=== PATIENT | male | born 1985 | race Caucasian/White ===

== ENCOUNTER 2018-12-26 17:38 | Inpatient (IN) | payer OTHER ==
[~2018-12-26] VITALS: Ht 167.6 cm; Wt 74.3 kg
[2018-12-26] MEDS ORDERED: ETOMIDATE (2MG/ML) 20ML VIAL IV ONE ×3 (17:45→18:15)
[2018-12-26] MEDS ORDERED: SUCCINYLCHOLINE CHLORIDE 20 MG/ML 10ML VIAL IV ONE ×3 (17:45→18:15)
[2018-12-26] MEDS ORDERED: MIDAZOLAM DRIP 50 mg/50mL 50 ML IV ONE (17:47)
[2018-12-26 17:50] VITALS: BP 145/107
[2018-12-26] MEDS ORDERED: SODIUM CHLORIDE 0.9% 1,000 ML IVB ONE (18:05)
[2018-12-26] MEDS ORDERED: SODIUM CHLORIDE 0.9% 1,000 ML IV ONE (18:15)
[2018-12-26 18:25] LABS: Basophils # (auto) 0 uL; Basophils % (auto) 0.3 % (0.0-2.0); Eosinophils # (auto) 0.2 uL; Eosinophils % (auto) 1.4 % (0.0-7.0); Hematocrit 46.8 % (41.0-53.0); Hemoglobin 15.9 g/dL (13.5-17.5); Lymphocytes # (auto) 2.3 uL; Lymphocytes % (auto) 17.2 % (10.0-50.0); Mean Corpuscular Volume 91.4 fL (80.0-100.0); Monocytes # (auto) 1.1 uL; Monocytes % (auto) 8.3 % (0.0-12.0); Neutrophils # (auto) 9.7 uL; Neutrophils % (auto) 72.8 % (37.0-80.0); Nucleated Red Blood Cells % 0.1 %; Platelet Count (auto) 307 10^3/uL (140-450); Red Blood Cells 5.12 10^6/uL (4.5-5.90); Red Cell Distribution Width 14.2 % (11.8-14.3); White Blood Cell 13.3 10^3/uL (4.4-10.8)
[2018-12-26] MEDS: MIDAZOLAM DRIP 50 mg/50mL 50 ML IV SCH ×2 (18:28→23:45)
[2018-12-26 18:31] LABS: Alanine Aminotransferase 39 U/L (16-61); Albumin 4.1 g/dL (3.4-5.0); Anion Gap 10 (5-15); Aspartate Aminotransferase 65 U/L (15-37); BUN/Creatinine Ratio 6.8; Blood Urea Nitrogen 7 mg/dL (7-18); Calcium 8.7 mg/dL (8.5-10.1); Carbon Dioxide 23 mmol/L (21-32); Chloride 107 mmol/L (98-107); GFR African American 108 mL/min; GFR Non-African American 90 mL/min; Glucose 122 mg/dL (74-106); Magnesium 2.5 mg/dL (1.6-2.6); Potassium 3.5 mmol/L (3.5-5.1); Sodium 140 mmol/L (136-145)
[2018-12-26 18:34] LABS: Alkaline Phosphatase 59 U/L (45-117); Bilirubin, Total < 0.1 mg/dL (0.2-1.0); Lactic Acid w/Reflex 2.2 mmol/L (0.4-2.0); Total Protein 7.7 g/dL (6.4-8.2)
[2018-12-26 18:36] LABS: INR 0.98 (0.9-1.15); Partial Thromboplastin Time 23.6 sec (23.64-32.05)
[2018-12-26 18:41] LABS: Urine Bacteria FEW /hpf (None Seen); Urine Blood Negative /uL (Negative); Urine Hyaline Cast MOD /lpf (0 - 2); Urine Mucus FEW (None Seen); Urine WBC 1 /hpf (0 - 3)
[2018-12-26 18:53] LABS: Barbiturate Scree,Urine NEGATIVE (NEGATIVE); Cannabinoid Screen, Urine POSITIVE (NEGATIVE)
[2018-12-26 19:02] LABS: Amphetamine Screen, Urine POSITIVE (NEGATIVE); Benzodiazephine Screen, Urine NEGATIVE (NEGATIVE); Cocaine Screen, Urine NEGATIVE (NEGATIVE); Opiate Scree,Urine NEGATIVE (NEGATIVE); Phencyclidine Screen, Urine NEGATIVE (NEGATIVE)
[2018-12-26] MEDS ORDERED: fentaNYL Drip 2500mCg/250mlNS 250 ML IV SCH (19:03)
[2018-12-26] MEDS ORDERED: NITROGLYCERIN 0.4 MG SL TAB SL PRN (19:15)
[2018-12-26] MEDS ORDERED: IPRATROPIUM BROM 0.5 MG/2.5ML INH SOL NEB SCH ×2 (19:15→20:00)
[2018-12-26] MEDS ORDERED: ACETAMINOPHEN 500 MG TAB PO PRN (19:15)
[2018-12-26] MEDS ORDERED: ONDANSETRON HCL 4 MG/2 ML VIAL IV PRN (19:15)
[2018-12-26] MEDS ORDERED: ALBUTEROL SULF 2.5 MG/0.5ML(0.5%) NEB SOLN NEB SCH ×2 (19:15→20:00)
[2018-12-26] MEDS ORDERED: MORPHINE SULF INJ 2 MG/ML SYRINGE 1ML IV PRN (19:15)
--- NOTE | 2018-12-26 19:15 | NUR ---
Respiratory note: ABG RESULTS REPORTED AT BEDSIDE TO DAR BURTON AND DR. MEREDITH SERRANO. NEW VENT SETTINGS: AC 18/500/+5 60%, ABG TO FOLLOW IN 2 HOURS. RN AWARE OF NEW VENT SETTINGS. WILL CONTINUE TO MONITOR.
[2018-12-26 19:31] VITALS: BP 140/115
[2018-12-26 20:18] VITALS: BP 126/87
[2018-12-26] MEDS: SODIUM CHLORIDE 0.9% 1,000 ML IV SCH (20:36)
[2018-12-26 21:31] VITALS: BP 132/87
[2018-12-26] MEDS: ALBUTEROL SULF 2.5 MG/0.5ML(0.5%) NEB SOLN NEB SCH (21:39)
[2018-12-26] MEDS: IPRATROPIUM BROM 0.5 MG/2.5ML INH SOL NEB SCH (21:39)
[2018-12-26] MEDS: CLINDAMYCIN 300MG IV 50 ML IV SCH (22:00)
[2018-12-26] MEDS: FAMOTIDINE (10MG/ML) 2ML VL IV SCH (23:00)
[2018-12-26] MEDS ORDERED: ACETAMINOPHEN 650 MG RECT SUPP PR ONE (23:15)
--- NOTE | 2018-12-26 23:45 | NUR ---
Respiratory note: CHANGE IN PATIENT STATUS NOTED. PT TRANSFERRED TO NEW BED AND BECAME AWAKE AND ALERT, ABLE TO FOLLOW COMMANDS AND VERBAL ORDERS. PT ABLE TO PERFORM MIP -26. VITAL SIGNS STABLE, HR 124, SPO2 99% ON 30%, RR 20, VT 325. VERBAL ORDER GIVEN BY DR. BARNETT TO EXTUBATE PT. PT PLACED ON 12L 50% COOL AEROSOL MASK, NO STRIDOR NOTED UPON AUSCULTATION. BS CLEAR/COARSE, PT COUGHING UP MODERATE THICK BROWN SECRETIONS. STRONG PRODUCTIVE COUGH NOTED. PT VITAL SIGNS STABLE. HR 131, SPO2 99%, RR 24. RN, DR. BARNETT AND PT FAMILY AT BEDSIDE. RADIOLOGY PAGED FOR CHEST XRAY. PT ON CONTINUOS BEDSIDE MONITORING, WILL CONTINUE TO MONITOR ORDERED.
[2018-12-27] MEDS ORDERED: SODIUM CHLORIDE 0.9% 2,000 ML IV ONE (00:30)
[2018-12-27] MEDS ORDERED: LORazepam 2MG/ML-1ML VIAL IV ONE (00:30)
[2018-12-27] MEDS: ALBUTEROL SULF 2.5 MG/0.5ML(0.5%) NEB SOLN NEB SCH ×6 (02:23→22:32)
[2018-12-27] MEDS: IPRATROPIUM BROM 0.5 MG/2.5ML INH SOL NEB SCH ×6 (02:23→22:32)
[2018-12-27] MEDS: SODIUM CHLORIDE 0.9% 1,000 ML IV SCH ×2 (03:11→15:44)
[2018-12-27 04:58] LABS: Basophils # (auto) 0.1 uL; Basophils % (auto) 0.6 % (0.0-2.0); Eosinophils # (auto) 0 uL; Eosinophils % (auto) 0.2 % (0.0-7.0); Hematocrit 39.7 % (41.0-53.0); Hemoglobin 13.9 g/dL (13.5-17.5); Lymphocytes # (auto) 0.5 uL; Lymphocytes % (auto) 5.3 % (10.0-50.0); Mean Corpuscular Hemoglobin 31.3 pg (28.0-32.0); Mean Corpuscular Volume 89.5 fL (80.0-100.0); Monocytes # (auto) 0.8 uL; Monocytes % (auto) 8.6 % (0.0-12.0); Neutrophils # (auto) 8.2 uL; Neutrophils % (auto) 85.3 % (37.0-80.0); Platelet Count (auto) 220 10^3/uL (140-450); Red Blood Cells 4.44 10^6/uL (4.5-5.90); Red Cell Distribution Width 13.9 % (11.8-14.3); White Blood Cell 9.6 10^3/uL (4.4-10.8)
[2018-12-27 05:21] LABS: Anion Gap 8 (5-15); BUN/Creatinine Ratio 9.2; Blood Urea Nitrogen 8 mg/dL (7-18); Calcium 7.5 mg/dL (8.5-10.1); Carbon Dioxide 22 mmol/L (21-32); Chloride 110 mmol/L (98-107); GFR African American 132 mL/min; GFR Non-African American 109 mL/min; Glucose 76 mg/dL (74-106); Potassium 3.9 mmol/L (3.5-5.1); Sodium 140 mmol/L (136-145)
[2018-12-27] MEDS: CLINDAMYCIN 300MG IV 50 ML IV SCH ×3 (06:09→22:11)
[2018-12-27] MEDS ORDERED: cefTRIAXone 1GM/50ML D5W 50 ML IV SCH (09:00)
[2018-12-27] MEDS: cefTRIAXone 1GM/50ML D5W 50 ML IV SCH (11:02)
[2018-12-27] MEDS: FAMOTIDINE (10MG/ML) 2ML VL IV SCH ×2 (11:02→22:11)
--- NOTE | 2018-12-27 14:30 | NUR ---
MS admit from [facility] admitted to tele/MS after SBAR received. Patient oriented to CURT ROBINRN primary RN, unit, room, bed, and unit policies regarding patient care and visiting hours.Family at bedside. Patient weighed by bed scale and encouraged to call if they need something. All questions and concerns addressed, patient verbalized understanding.
[2018-12-27 14:40] VITALS: BP 109/54
--- NOTE | 2018-12-27 17:03 | NUR ---
PATIENT CALLED RN TO ROOM STATED RIGHT HAND AND ARM STARTED SWELLING. ASSESSED PATIENT RIGHT HAND AND ARM, RIGHT HAND WAS LARGER THEN LEFT, REDNESS NOTED ON KNUCKLES, AND LOWER ARM.PAIN 3/10. PULSE 2+ BILATERALLY. NO S/S OF DISTRESS. V/S 111/61 79 HR 98% ON RA 18 RR 98.6F. WILL PAGE HOSPITALIST AND CONTINUE TO MONITOR.
--- NOTE | 2018-12-27 17:05 | NUR ---
PAGED ON CALLED HOSPITALIST. AWAITING CALL BACK.
--- NOTE | 2018-12-27 17:48 | NUR ---
PAGED BUSINESS AND SERVICES INSTRUCTOR HOSPITALIST. AWAITING CALL BACK.
--- NOTE | 2018-12-27 17:49 | NUR ---
RECEIVED CALL BACK. SPOKE WITH MICHEAL DODGE. NEW ORDERS RECEIVED AWAITING CALL BACK. Addendum: 12/27/18 at 1819 by CURT ROBIN RN RN RECEIVED CALL BACK. SPOKE WITH MICHEAL DODGE. NEW ORDERS RECEIVED SEE EMR FOR ORDERS.
--- NOTE | 2018-12-27 18:27 | NUR ---
NOTIFIED MICHEAL DODGE OF RESULTS OF ULTRASOUND. NEW ORDERS RECEIVED SEE EMR FOR ORDERS.
[2018-12-27] MEDS ORDERED: IOHEXOL 350 MG/ML 100ML IJ ONE (18:51)
--- NOTE | 2018-12-27 19:30 | NUR ---
Opening Shift Note Assumed care of patient. Patient awake and alert. No S/S of distress/SOB or pain. Instructed on POC and to call for assist PRN, will continue to monitor for changes. Bed locked in lowest position and bed rails up x2. Call light within reach.
[2018-12-27] MEDS: ENOXAPARIN SOD 80 MG/0.8ML SYRINGE SC SCH ×2 (19:50→22:12)
[2018-12-27 21:20] VITALS: BP 106/64
--- NOTE | 2018-12-27 22:00 | NUR ---
Patient right arm restricted. programs assistant and patient made aware that the right arm is restricted from any activity, right arm restriction sign placed above bed
--- NOTE | 2018-12-27 22:40 | NUR ---
Patient taken down to radiology for CT angio
--- NOTE | 2018-12-28 01:00 | NUR ---
Patient states that he is aware of his ultrasound results of his right arm. At this time the swelling of the extremity is increasing and water control station engineer, made aware. Educated patient to keep his arm elevated on pillows and heat pack applied to hand for comfort
[2018-12-28] MEDS: SODIUM CHLORIDE 0.9% 1,000 ML IV SCH ×3 (01:15→21:08)
[2018-12-28] MEDS: IPRATROPIUM BROM 0.5 MG/2.5ML INH SOL NEB SCH ×6 (02:26→22:29)
[2018-12-28] MEDS: ALBUTEROL SULF 2.5 MG/0.5ML(0.5%) NEB SOLN NEB SCH ×6 (02:26→22:29)
[2018-12-28 05:17] VITALS: BP 105/55
[2018-12-28] MEDS: CLINDAMYCIN 300MG IV 50 ML IV SCH ×3 (05:48→21:44)
[2018-12-28 06:10] LABS: Basophils # (auto) 0 uL; Basophils % (auto) 0.5 % (0.0-2.0); Eosinophils # (auto) 0.2 uL; Hematocrit 37.3 % (41.0-53.0); Hemoglobin 13.1 g/dL (13.5-17.5); Lymphocytes # (auto) 1.5 uL; Lymphocytes % (auto) 16.6 % (10.0-50.0); Mean Corpuscular Hemoglobin 31.1 pg (28.0-32.0); Mean Corpuscular Hgb Conc. 35.1 g/dL (32.0-36.0); Mean Corpuscular Volume 88.5 fL (80.0-100.0); Monocytes # (auto) 0.6 uL; Neutrophils # (auto) 6.8 uL; Neutrophils % (auto) 73.9 % (37.0-80.0); Nucleated Red Blood Cells % 0.1 %; Platelet Count (auto) 195 10^3/uL (140-450); Red Blood Cells 4.21 10^6/uL (4.5-5.90); Red Cell Distribution Width 13.6 % (11.8-14.3); White Blood Cell 9.1 10^3/uL (4.4-10.8)
[2018-12-28 06:22] LABS: Albumin 2.9 g/dL (3.4-5.0); Calcium 7.9 mg/dL (8.5-10.1); Potassium 3.5 mmol/L (3.5-5.1)
[2018-12-28 06:27] LABS: Bilirubin, Total 0.8 mg/dL (0.2-1.0); Total Protein 5.7 g/dL (6.4-8.2)
[2018-12-28 09:32] VITALS: BP 120/63
[2018-12-28] MEDS: cefTRIAXone 1GM/50ML D5W 50 ML IV SCH (10:45)
[2018-12-28] MEDS: ENOXAPARIN SOD 80 MG/0.8ML SYRINGE SC SCH ×2 (10:46→21:44)
[2018-12-28] MEDS: FAMOTIDINE (10MG/ML) 2ML VL IV SCH ×2 (10:46→21:44)
--- NOTE | 2018-12-28 11:10 | NUR ---
DR. SERRANO IN TO SEE PT. PT IN AGREEMENT WITH PLAN OF CARE.
--- NOTE | 2018-12-28 11:30 | NUR ---
NEW IV INITIATED TO LFA#20. FLUSHING WELL. PT TOLERATED PROCEDURE WELL. IV TO LAC#18 DC'D DUE TO LEAKING.
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
[2018-12-28 13:46] VITALS: BP 110/64
--- NOTE | 2018-12-28 15:13 | NUR ---
PT TAKEN TO MRI VIA WHEELCHAIR. NO DISTRESS, EFFORTLESS BREATHING ON ROOM AIR.
--- NOTE | 2018-12-28 16:00 | NUR ---
PT BACK TO UNIT FROM MRI, NO DISTRESS NOTED. CALL LIGHT WITHIN REACH.
[2018-12-28 17:48] VITALS: BP 113/63
[2018-12-28] MEDS: MIDAZOLAM DRIP 50 mg/50mL 50 ML IV SCH (18:04)
--- NOTE | 2018-12-28 19:35 | NUR ---
OPENING SHIFT NOTE Assumed care of patient who is alert and oriented. Family is at bed side. Currently on room air with no s/s of distress or SOB noted. Denies pain at this time. Patient encouraged to continue ambulating as tolerated. POC discussed with patient who verbalizes understanding. Bed is in low locked position with side rails up x2. Call light is within reach and patient encouraged to call for assistance when needed. Will continue to monitor for changes PRN.
[2018-12-28 22:00] VITALS: BP 118/67
[2018-12-29] MEDS: ALBUTEROL SULF 2.5 MG/0.5ML(0.5%) NEB SOLN NEB SCH ×3 (02:06→10:07)
[2018-12-29] MEDS: IPRATROPIUM BROM 0.5 MG/2.5ML INH SOL NEB SCH ×3 (02:06→10:08)
[2018-12-29 05:38] VITALS: BP 122/71
[2018-12-29] MEDS: CLINDAMYCIN 300MG IV 50 ML IV SCH (06:00)
[2018-12-29] MEDS: SODIUM CHLORIDE 0.9% 1,000 ML IV SCH (06:26)
--- NOTE | 2018-12-29 08:02 | NUR ---
OPENING SHIFT NOTE Assumed care of patient who is alert and oriented. Currently on room air with no s/s of SOB or distress. Denies any pain or discomfort at this time. POC discussed with patient who verbalizes understanding. Patient encouraged to continue to ambulate as tolerated to maintain skin integrity and strength. Bed is in low locked position with side rails up x2. Will continue to monitor for changes PRN. Call light within reach.
[2018-12-29 08:23] VITALS: BP 113/71
[2018-12-29] MEDS: cefTRIAXone 1GM/50ML D5W 50 ML IV SCH (09:48)
[2018-12-29] MEDS: FAMOTIDINE (10MG/ML) 2ML VL IV SCH (09:48)
[2018-12-29] MEDS: ENOXAPARIN SOD 80 MG/0.8ML SYRINGE SC SCH (09:48)
--- NOTE | 2018-12-29 09:50 | NUR ---
ELECTROENCEPHALOGRAM COMPLETED AT BEDSIDE. MAYA ROJAS NOTIFIED.
--- NOTE | 2018-12-29 11:01 | NUR ---
MD Piedra rounded on pt informed pt he is clear for discharge and to not drive untill he follow up with MD garza, also informed pt on importance of no ETOH abuse or illicit drug use, pt verbalized understanding stated "i dont think shahid drink for awhile"
[2018-12-29 11:37] VITALS: BP 113/71
[2018-12-29 12:00] VITALS: BP 116/67
--- NOTE | 2018-12-29 13:15 | NUR ---
pt left ambulatory accompanied by father and brother, no c/o pain or discomfort no respiratory distress noted, pt refused mrsa screen stating "i just want to go home"
--- NOTE | 2018-12-29 16:34 | NUR ---
Assessment Pt is a 33 yr old alert and oriented male. Prior to admit, pt drank too much alcohol and his mom found him passed out in a bunch of vomit. Pt stated that he has done that one other time and that he has realized that he does not want to do that ever again. SW asked if he has a history of alcohol abuse, pt declined. SW asked if he has been dealing with anything hard lately that was a factor in drinking extra. Pt declined. SW asked pt if he would be interested in any community resources, such as . Pt stated that he is not in need of it at this time. Pt stated that he was embarrassed by what happened and that is a good enough reason to not drink too much again. Pts manner was friendly and was not defensive or combative. Pt states that his parents and brother live w/ him at home. Pts Mom, Heidy, is his emergency contact at [phone]. Pt is ambulatory, is independent with ADLs, cooking and cleaning. Pt stated that he does not have a Primary Dr. but that Samantha Syed is helping him find one. Pt received the paperwork for and Advanced directive. Pt stated that he would have a family member take him home. No needs or concerns at this time
== END 2018-12-29 13:13 | disposition home or self-care (01) | DRG 208 ==
LOC: ER 17:38 → EDBD 17:38 → TELE 17:39 → TELE-WESTW 12-27 14:31 → WEST WING 12-27 14:36
PROVIDERS: ADMIT Nurse Practitioner Acute Care; ATTEND Family Medicine
PROC: 5A1935Z Respiratory Ventilation, Less than 24 Consecutive Hours (ICD-10-PCS; principal; 2018-12-26)
PROC: 0BH17EZ Insertion of Endotracheal Airway into Trachea, Via Natural or Artificial Opening (ICD-10-PCS; 2018-12-26)
DX: J96.00 Acute respiratory failure, unspecified whether with hypoxia or hypercapnia (principal); J69.0 Pneumonitis due to inhalation of food and vomit; G92 Toxic encephalopathy; R55 Syncope and collapse; R56.9 Unspecified convulsions; F12.90 Cannabis use, unspecified, uncomplicated; F90.9 Attention-deficit hyperactivity disorder, unspecified type; R00.1 Bradycardia, unspecified; M79.89 Other specified soft tissue disorders
CPT/HCPCS: 31500; 36415; 36600; 70450; 70551; 71045; 71275; 73130; 80048; 80053; 80307; 80320; 81001; 82550; 82805; 83605; 83735; 84484; 85025; 85610; 85730; 87040; 87070; 87205; 93005; 93971; 94002; 94640; 94761; 95819; 96361; 96365; 99291; G0378; J0330; J0696; J2250; J3490

== ENCOUNTER → 2019-01-11 | Outpatient (CLI) | payer OTHER ==
[2019-01-11 13:27] LABS: Basophils # (auto) 0.1 uL; Eosinophils # (auto) 0.1 uL; Eosinophils % (auto) 0.7 % (0.0-7.0); Hematocrit 48.7 % (41.0-53.0); Hemoglobin 16.6 g/dL (13.5-17.5); Lymphocytes # (auto) 1.8 uL; Lymphocytes % (auto) 25.6 % (10.0-50.0); Mean Corpuscular Hemoglobin 30.2 pg (28.0-32.0); Mean Corpuscular Hgb Conc. 34.1 g/dL (32.0-36.0); Mean Corpuscular Volume 88.7 fL (80.0-100.0); Monocytes # (auto) 0.5 uL; Monocytes % (auto) 6.7 % (0.0-12.0); Neutrophils # (auto) 4.8 uL; Nucleated Red Blood Cells % 0.1 %; Platelet Count (auto) 380 10^3/uL (140-450); Red Cell Distribution Width 13.6 % (11.8-14.3); White Blood Cell 7.2 10^3/uL (4.4-10.8)
[2019-01-11 13:50] LABS: Cholesterol 216 mg/dL (< 200); Triglycerides 82 mg/dL (< 150)
[2019-01-11 13:52] LABS: Creatine Kinase IFCC 92 U/L (39-308); HDL Cholesterol 71 mg/dL (40-59); LDL Cholesterol 132 mg/dL (< 100)
== END | disposition home or self-care (01) ==
LOC: LAB 12:46
PROVIDERS: ATTEND Internal Medicine
DX: D64.9 Anemia, unspecified (principal); F90.9 Attention-deficit hyperactivity disorder, unspecified type; F41.9 Anxiety disorder, unspecified
CPT/HCPCS: 36415; 80061; 82306; 82550; 83036; 85025

== ENCOUNTER 2019-03-31 02:07 | Emergency (ER) | payer OTHER ==
[~2019-03-31] VITALS: Ht 167.6 cm; Wt 68.0 kg
[2019-03-31 02:52] VITALS: BP 113/68
== END 2019-03-31 03:04 | disposition home or self-care (01) ==
LOC: ER 02:09
DX: J06.9 Acute upper respiratory infection, unspecified (principal)

== ENCOUNTER → 2019-05-07 | Emergency (ER) | payer OTHER | END | disposition left against medical advice (07) | LOC: ER 22:07 | DX: R51 Headache (principal); Z53.21 Procedure and treatment not carried out due to patient leaving prior to being seen by health care provider ==

== ENCOUNTER 2019-05-08 11:27 | Emergency (ER) | payer OTHER ==
[~2019-05-08] VITALS: Ht 175.3 cm; Wt 81.6 kg
[2019-05-08] MEDS ORDERED: SODIUM CHLORIDE 0.9% 1,000 ML IVB ONE (12:11)
[2019-05-08 13:20] LABS: Basophils # (auto) 0.1 uL; Basophils % (auto) 0.5 % (0.0-2.0); Eosinophils # (auto) 0 uL; Hemoglobin 13.4 g/dL (13.5-17.5); Lymphocytes # (auto) 0.8 uL; Lymphocytes % (auto) 8.1 % (10.0-50.0); Mean Corpuscular Hemoglobin 29.4 pg (28.0-32.0); Mean Corpuscular Hgb Conc. 34.4 g/dL (32.0-36.0); Mean Corpuscular Volume 85.6 fL (80.0-100.0); Monocytes % (auto) 10.9 % (0.0-12.0); Neutrophils # (auto) 7.7 uL; Neutrophils % (auto) 80.5 % (37.0-80.0); Nucleated Red Blood Cells % 0.1 %; Platelet Count (auto) 292 10^3/uL (140-450); Red Blood Cells 4.56 10^6/uL (4.5-5.90); Red Cell Distribution Width 13.6 % (11.8-14.3); White Blood Cell 9.5 10^3/uL (4.4-10.8)
[2019-05-08 13:38] LABS: Acetaminophen < 2.0 ug/mL (10-30); Albumin 3.7 g/dL (3.4-5.0); Anion Gap 7 (5-15); Blood Alcohol < 3.0 mg/dL (0-5); Blood Urea Nitrogen 8 mg/dL (7-18); Calcium 8.4 mg/dL (8.5-10.1); Carbon Dioxide 25 mmol/L (21-32); Chloride 104 mmol/L (98-107); Glucose 109 mg/dL (74-106); Potassium 4.1 mmol/L (3.5-5.1); Salicylate < 1.7 mg/dL (2.8-20.0); Sodium 136 mmol/L (136-145)
[2019-05-08 13:44] LABS: Alanine Aminotransferase 21 U/L (16-61); Alkaline Phosphatase 48 U/L (45-117); Aspartate Aminotransferase 23 U/L (15-37); BUN/Creatinine Ratio 8.4; Bilirubin, Total 0.5 mg/dL (0.2-1.0); GFR African American 119 mL/min; GFR Non-African American 98 mL/min; Total Protein 7.1 g/dL (6.4-8.2)
[2019-05-08 15:13] LABS: Urine Bacteria NONE SEEN /hpf (None Seen); Urine Blood Negative /uL (Negative); Urine Hyaline Cast FEW /lpf (0 - 2); Urine Mucus FEW (None Seen); Urine Specific Gravity 1.018 (1.001-1.035); Urine WBC 3 /hpf (0 - 3)
[2019-05-08 15:24] LABS: Alcohol, Urine < 3.0 mg/dL (0-5); Amphetamine Screen, Urine NEGATIVE (NEGATIVE); Barbiturate Scree,Urine NEGATIVE (NEGATIVE); Benzodiazephine Screen, Urine NEGATIVE (NEGATIVE); Cannabinoid Screen, Urine NEGATIVE (NEGATIVE); Cocaine Screen, Urine NEGATIVE (NEGATIVE); Opiate Scree,Urine NEGATIVE (NEGATIVE); Phencyclidine Screen, Urine NEGATIVE (NEGATIVE)
[2019-05-08 17:13] VITALS: BP 110/74
== END 2019-05-08 17:16 | disposition home or self-care (01) ==
LOC: EDBD 11:27 → ER 11:27
DX: G40.909 Epilepsy, unspecified, not intractable, without status epilepticus (principal); F12.20 Cannabis dependence, uncomplicated; F17.210 Nicotine dependence, cigarettes, uncomplicated
CPT/HCPCS: 36415; 70450; 71046; 80053; 80307; 80320; 80329; 81001; 83735; 84484; 85025; 93005; 96360; 99284; J7030

== ENCOUNTER → 2021-02-21 | Outpatient (CLI) | payer OTHER ==
[2021-02-21 10:23] LABS: BUN/Creatinine Ratio 8.9; Potassium 4.3 mmol/L (3.5-5.1)
== END | disposition home or self-care (01) ==
LOC: LAB 09:09
PROVIDERS: ATTEND Internal Medicine
DX: E78.5 Hyperlipidemia, unspecified (principal)
CPT/HCPCS: 36415; 80048

== ENCOUNTER 2021-04-29 21:37 | Emergency (ER) | payer OTHER ==
[~2021-04-29] VITALS: Ht 167.6 cm; Wt 70.3 kg
[2021-04-30 03:35] VITALS: BP 118/66
== END 2021-04-30 03:36 | disposition home or self-care (01) ==
LOC: ER 21:39
DX: S93.402A Sprain of unspecified ligament of left ankle, initial encounter (principal); F17.210 Nicotine dependence, cigarettes, uncomplicated; X50.1XXA Overexertion from prolonged static or awkward postures, initial encounter; Y93.89 Activity, other specified; Y92.89 Other specified places as the place of occurrence of the external cause; Y99.8 Other external cause status
CPT/HCPCS: 73610

== ENCOUNTER → 2021-08-17 | Outpatient (CLI) | payer OTHER ==
[2021-08-17 10:33] LABS: Cholesterol 238 mg/dL (< 200); Triglycerides 49 mg/dL (< 150)
[2021-08-17 10:35] LABS: HDL Cholesterol 73 mg/dL (40-59); LDL Cholesterol 155 mg/dL (< 100)
== END | disposition home or self-care (01) ==
LOC: LAB 09:36
PROVIDERS: ATTEND Internal Medicine
DX: E78.5 Hyperlipidemia, unspecified (principal)
CPT/HCPCS: 36415; 80061

== ENCOUNTER → 2022-02-13 | Outpatient (CLI) | payer OTHER ==
[2022-02-13 09:40] LABS: Basophils # (auto) 0 10 ^3/uL (0-0.2); Basophils % (auto) 0.7 % (0.0-2.0); Eosinophils # (auto) 0.1 10 ^3/uL (0-0.8); Eosinophils % (auto) 1.3 % (0.0-7.0); Hematocrit 44.7 % (41.0-53.0); Lymphocytes # (auto) 2.2 10 ^3/uL (0.4-5.4); Lymphocytes % (auto) 30.8 % (10.0-50.0); Mean Corpuscular Hemoglobin 27.6 pg (28.0-32.0); Mean Corpuscular Hgb Conc. 33.4 g/dL (32.0-36.0); Mean Corpuscular Volume 82.5 fL (80.0-100.0); Monocytes # (auto) 0.8 10 ^3/uL (0-1.3); Monocytes % (auto) 10.7 % (0.0-12.0); Neutrophils # (auto) 4.1 10 ^3/uL (1.6-8.6); Neutrophils % (auto) 56.5 % (37.0-80.0); Nucleated Red Blood Cells % 0.2 %; Red Blood Cells 5.42 10^6/uL (4.5-5.90); Red Cell Distribution Width 12.9 % (11.8-14.3); White Blood Cell 7.2 10^3/uL (4.4-10.8)
[2022-02-13 10:27] LABS: Albumin 4.3 g/dL (3.4-5.0); BUN/Creatinine Ratio 14.4; Bilirubin, Total 1.1 mg/dL (0.2-1.0); Calcium 9.4 mg/dL (8.5-10.1); Potassium 4.6 mmol/L (3.5-5.1); Total Protein 8.5 g/dL (6.4-8.2)
== END | disposition home or self-care (01) ==
LOC: LAB 09:17
PROVIDERS: ATTEND Internal Medicine
DX: Z00.00 Encounter for general adult medical examination without abnormal findings (principal); E78.5 Hyperlipidemia, unspecified
CPT/HCPCS: 36415; 80053; 80061; 85025

== ENCOUNTER → 2022-03-28 | Outpatient (CLI) | payer OTHER ==
[2022-03-28 14:04] LABS: Albumin 4.4 g/dL (3.4-5.0); Bilirubin, Direct 0.1 mg/dL (0-0.2)
[2022-03-28 14:08] LABS: Bilirubin, Total 0.5 mg/dL (0.2-1.0); Total Protein 7.8 g/dL (6.4-8.2)
== END | disposition home or self-care (01) ==
LOC: LAB 13:24
PROVIDERS: ATTEND Internal Medicine
DX: E78.5 Hyperlipidemia, unspecified (principal)
CPT/HCPCS: 36415; 80076

== ENCOUNTER → 2022-05-29 | Outpatient (CLI) | payer OTHER ==
[2022-05-29 10:14] LABS: Albumin 4.2 g/dL (3.4-5.0); Bilirubin, Direct 0.2 mg/dL (0-0.2)
[2022-05-29 10:17] LABS: Bilirubin, Total 0.4 mg/dL (0.2-1.0); Total Protein 7.5 g/dL (6.4-8.2)
== END | disposition home or self-care (01) ==
LOC: LAB 09:15
PROVIDERS: ATTEND Internal Medicine
DX: E78.5 Hyperlipidemia, unspecified (principal)
CPT/HCPCS: 36415; 80061; 80076

== ENCOUNTER → 2022-11-28 | Outpatient (CLI) | payer OTHER ==
[2022-11-28 09:05] LABS: Albumin 4.5 g/dL (3.2-4.8); Bilirubin, Direct 0.2 mg/dL (<0.3); Bilirubin, Total 0.7 mg/dL (0.2-1.0)
[2022-11-28 09:06] LABS: Total Protein 7.2 g/dL (5.7-8.2)
== END | disposition home or self-care (01) ==
LOC: LAB 07:17
PROVIDERS: ATTEND Internal Medicine
DX: E78.5 Hyperlipidemia, unspecified (principal)
CPT/HCPCS: 36415; 80061; 80076

== ENCOUNTER → 2023-02-27 | Outpatient (CLI) | payer OTHER ==
[2023-02-27 13:45] LABS: Bilirubin, Total 0.6 mg/dL (0.2-1.0); Total Protein 7.9 g/dL (5.7-8.2)
[2023-02-27 16:21] LABS: Bilirubin, Direct 0.2 mg/dL (<0.3)
== END | disposition home or self-care (01) ==
LOC: LAB 07:28
PROVIDERS: ATTEND Internal Medicine
DX: E78.5 Hyperlipidemia, unspecified (principal); E72.50 Disorder of glycine metabolism, unspecified
CPT/HCPCS: 36415; 80061; 80076

== ENCOUNTER → 2023-05-05 | Outpatient (CLI) | payer OTHER ==
[2023-05-05 11:13] LABS: Albumin 5.2 g/dL (3.2-4.8); Bilirubin, Direct 0.4 mg/dL (<0.3); Bilirubin, Total 1.3 mg/dL (0.2-1.0); Total Protein 8.3 g/dL (5.7-8.2)
== END | disposition home or self-care (01) ==
LOC: LAB 09:51
PROVIDERS: ATTEND Internal Medicine
DX: E78.5 Hyperlipidemia, unspecified (principal); R79.89 Other specified abnormal findings of blood chemistry
CPT/HCPCS: 36415; 80061; 80076

== ENCOUNTER → 2023-08-04 | Outpatient (CLI) | payer OTHER ==
[2023-08-04 07:54] LABS: Basophils # (auto) 0.1 10 ^3/uL (0-0.2); Eosinophils # (auto) 0.3 10 ^3/uL (0-0.8); Eosinophils % (auto) 5.1 % (0.0-7.0); Hemoglobin 14.6 g/dL (13.5-17.5); Lymphocytes # (auto) 1.8 10 ^3/uL (0.4-5.4); Lymphocytes % (auto) 26.3 % (10.0-50.0); Mean Corpuscular Hemoglobin 27.9 pg (28.0-32.0); Mean Corpuscular Hgb Conc. 33.9 g/dL (32.0-36.0); Mean Corpuscular Volume 82.4 fL (80.0-100.0); Monocytes # (auto) 0.7 10 ^3/uL (0-1.3); Monocytes % (auto) 10.2 % (0.0-12.0); Neutrophils # (auto) 3.9 10 ^3/uL (1.6-8.6); Neutrophils % (auto) 57.4 % (37.0-80.0); Nucleated Red Blood Cells % 0.1 %; Red Blood Cells 5.22 10^6/uL (4.5-5.90); Red Cell Distribution Width 13.5 % (11.8-14.3); White Blood Cell 6.8 10^3/uL (4.4-10.8)
[2023-08-04 08:24] LABS: Alanine Aminotransferase 28 U/L (7-40); Albumin 4.8 g/dL (3.2-4.8); Alkaline Phosphatase 79 U/L (46-116); Anion Gap 6 (5-15); Aspartate Aminotransferase 17 U/L (13-40); BUN/Creatinine Ratio 11.7 (10.0-20.0); Bilirubin, Total 0.5 mg/dL (0.2-1.0); Blood Urea Nitrogen 11 mg/dL (9-23); Calcium 10.3 mg/dL (8.5-10.1); Carbon Dioxide 31 mmol/L (20-30); Chloride 103 mmol/L (98-107); Glucose 113 mg/dL (74-106); Potassium 4.3 mmol/L (3.5-5.1); Sodium 140 mmol/L (136-145); Total Protein 7.9 g/dL (5.7-8.2)
[2023-08-04 09:52] LABS: Hepatitis B Surface Antigen Negative (Negative)
[2023-08-04 10:13] LABS: Hepatitis A Ab IgM Negative
[2023-08-04 10:14] LABS: Hepatitis B Core IgM Negative; Hepatitis C Antibody Negative (Negative)
== END | disposition home or self-care (01) ==
LOC: LAB 07:43
PROVIDERS: ATTEND Internal Medicine
DX: E78.5 Hyperlipidemia, unspecified (principal); R79.89 Other specified abnormal findings of blood chemistry
CPT/HCPCS: 36415; 80053; 80074; 82306; 85025

== ENCOUNTER → 2023-11-03 | Outpatient (CLI) | payer OTHER ==
[2023-11-03 13:34] LABS: Calcium 9.7 mg/dL (8.7-10.4)
== END | disposition home or self-care (01) ==
LOC: LAB 12:47
PROVIDERS: ATTEND Internal Medicine
DX: E78.5 Hyperlipidemia, unspecified (principal); E83.2 Disorders of zinc metabolism
CPT/HCPCS: 36415; 80061; 82310; 83036

== ENCOUNTER → 2024-01-15 | Outpatient (CLI) | payer OTHER ==
[2024-01-15 12:07] LABS: Bilirubin, Direct 0.4 mg/dL (<0.3); Bilirubin, Total 1.5 mg/dL (0.2-1.0); Total Protein 7.9 g/dL (5.7-8.2)
== END | disposition home or self-care (01) ==
LOC: LAB 10:50
PROVIDERS: ATTEND Internal Medicine
DX: E78.5 Hyperlipidemia, unspecified (principal)
CPT/HCPCS: 36415; 80076

== ENCOUNTER → 2024-03-25 | Outpatient (CLI) | payer OTHER ==
[2024-03-25 11:32] LABS: Albumin 4.8 g/dL (3.2-4.8); Bilirubin, Direct 0.2 mg/dL (<0.3); Bilirubin, Total 0.5 mg/dL (0.2-1.0); Total Protein 7.8 g/dL (5.7-8.2)
== END | disposition home or self-care (01) ==
LOC: LAB 10:43
PROVIDERS: ATTEND Internal Medicine
DX: E78.5 Hyperlipidemia, unspecified (principal)
CPT/HCPCS: 36415; 80061; 80076

== ENCOUNTER → 2024-07-21 | Outpatient (CLI) | payer OTHER ==
[2024-07-21 09:14] LABS: Alanine Aminotransferase 21 U/L (7-40); Alkaline Phosphatase 66 U/L (46-116); Anion Gap 11 (5-15); Aspartate Aminotransferase 27 U/L (13-40); BUN/Creatinine Ratio 12.5 (10.0-20.0); Blood Urea Nitrogen 13 mg/dL (9-23); Carbon Dioxide 26 mmol/L (20-31); Chloride 100 mmol/L (98-107); Glucose 83 mg/dL (74-106); Potassium 4.1 mmol/L (3.5-5.1); Sodium 137 mmol/L (136-145); Triglycerides 58 mg/dL (< 150)
[2024-07-21 09:22] LABS: Albumin 5.1 g/dL (3.2-4.8); Bilirubin, Total 1.4 mg/dL (0.2-1.0); Cholesterol 201 mg/dL (< 200); HDL Cholesterol 64 mg/dL (40-59); LDL Cholesterol 124 mg/dL (< 100)
== END | disposition home or self-care (01) ==
LOC: LAB 07:40
PROVIDERS: ATTEND Internal Medicine
DX: E78.5 Hyperlipidemia, unspecified (principal)
CPT/HCPCS: 36415; 80053; 80061; 82607

== ENCOUNTER → 2024-09-27 | Outpatient (CLI) | payer OTHER ==
[2024-09-28 07:07] LABS: Anti-Nuclear Antibody Direct Negative (Negative); Anti-dsDNA Antibody <1 IU/mL (0-9); Antiscleroderma-70 Antibody <0.2 AI (0.0-0.9); RNP Antibody <0.2 AI (0.0-0.9); Sjogren's Anti-SS-A Antibody <0.2 AI (0.0-0.9); Sjogren's Anti-SS-B Antibody <0.2 AI (0.0-0.9); Smith Antibody <0.2 AI (0.0-0.9)
[2024-09-28 08:07] LABS: Complement C3 143 mg/dL (82-167); Rheumatoid Arthritis Factor <10.0 IU/mL (<14.0); Thyroid Peroxidase (TPO) Ab 11 IU/mL (0-34)
[2024-09-29 14:06] LABS: Actin (Smooth Muscle) Antibody 5 Units (0-19); Mitochondrial (M2) Antibody <20.0 Units (0.0-20.0)
== END | disposition home or self-care (01) ==
LOC: LAB 10:11
PROVIDERS: ATTEND Internal Medicine
DX: Z13.0 Encounter for screening for diseases of the blood and blood-forming organs and certain disorders involving the immune mechanism (principal)
CPT/HCPCS: 86160; 86225; 86235; 86376; 86431